=== PATIENT | male | born 1950 | race Caucasian/White ===

== ENCOUNTER 2017-11-19 12:13 | Outpatient (CLI) | payer MEDICARE, BC ==
[~2017-11-19] VITALS: Ht 185.4 cm; Wt 127.8 kg
[~2017-11-19 12:13] MED LIST changes: -BENADRYL 1%-0.11 CRE TP
[2017-11-19 15:56] VITALS: BP 112/57; PULSE 69; TEMP 98
[2017-11-22] MEDS ORDERED: BENADRYL 1%-0.11 CRE TP (12:04)
== END 2017-11-19 15:45 | disposition home or self-care (01) ==
LOC: EUO 12:13 → EDBD 12:13 → EUO 15:45
DX: E86.0 Dehydration (principal)

== ENCOUNTER → 2017-11-19 | Outpatient (CLI) | payer MEDICARE, BC ==
[~2017-11-19] MED LIST: BENADRYL 1%-0.11 CRE TP; COLACE 100100 MG/CAP PO; EXFORGE 10 MG-11 TAB PO; GLUMETZA500 MG PO; LACRI-LUBE1 OI1 OP; LIDODERM 5% PATC1 EA TP; MOTRIN 600600 MG/TAB PO; PERCOCET 325 MG1 TA3 PO; PREDNISONE20 MG PO; TENORMIN 5050 MG/TAB PO; VALTREX1 GM PO
== END ==
LOC: EDBD 10:06 → COL.RAD 10:06
DX: S22.49XA Multiple fractures of ribs, unspecified side, initial encounter for closed fracture (principal); J90 Pleural effusion, not elsewhere classified; J18.1 Lobar pneumonia, unspecified organism

== ENCOUNTER 2018-02-09 07:37 | Outpatient (CLI) | payer MEDICARE, BC ==
[~2018-02-09] VITALS: Ht 185.4 cm; Wt 129.1 kg
[~2018-02-09 07:37] MED LIST changes: +BENADRYL 1%-0.11 CRE TP; +IMODIUM A-D2 MG PO; +K-TAB20 PO; +NOVLOG SQ
[2018-02-09 08:02] VITALS: BP 182/76; BP 195/86; PULSE 93; TEMP 97.9
[2018-02-09] MEDS ORDERED: ASPIRIN 81M81 MG/TA2 PO (08:10)
[2018-02-09] MEDS ORDERED: K-DUR20 MEQ PO (08:10)
[2018-02-09] MEDS ORDERED: NOVOLOG 100U100 U/M1 SQ (08:12)
[2018-02-09 09:51] VITALS: BP 150/61; PULSE 78; TEMP 98
[2018-02-09 10:05] VITALS: BP 114/87; PULSE 76
[2018-02-09 10:20] VITALS: BP 136/66; PULSE 74
[2018-02-09 10:35] VITALS: BP 139/64; PULSE 72
[2018-02-09 10:50] LABS: GLUCOSE,PLEURAL FLUID 133 mg/dL; TOTAL PROTEIN,PLEURAL FLUID 4.4 gm/dL
[2018-02-09 10:57] LABS: PLEURAL FLUID RBC 81000 /mm3 (0-0); PLEURAL FLUID WBC 1048 /mm3
[2018-02-09 11:03] LABS: PLEURAL FLUID APPEARANCE HAZY; PLEURAL FLUID COLOR RED
== END 2018-02-09 10:50 | disposition home or self-care (01) ==
LOC: SDCO 07:37
PROVIDERS: Internal Medicine Pulmonary Disease
DX: J90 Pleural effusion, not elsewhere classified (principal); S22.42XS Multiple fractures of ribs, left side, sequela; G47.10 Hypersomnia, unspecified; E11.9 Type 2 diabetes mellitus without complications; Z79.82 Long term (current) use of aspirin; Z79.4 Long term (current) use of insulin; Z87.891 Personal history of nicotine dependence

== ENCOUNTER → 2018-04-28 | Outpatient (CLI) | payer MEDICARE, BC ==
[~2018-04-28] MED LIST changes: +ASPIRIN 81M81 MG/TA2 PO; +K-DUR20 MEQ PO; +NOVOLOG 100U100 U/M1 SQ
== END ==
LOC: COL.RAD 08:23
DX: M89.312 Hypertrophy of bone, left shoulder (principal)

== ENCOUNTER 2020-12-31 08:37 | Day surgery (SDC) | payer MEDICARE, BC ==
[2020-12-31] VITALS (10 sets, daily range): BP systolic 111–160; BP diastolic 66–93; PULSE 88–116; TEMP 98.7
[~2020-12-31] VITALS: Ht 185.4 cm; Wt 148.0 kg
[2020-12-31 10:20] LABS: HEMATOCRIT 43.4 % (42.0-52.0); HEMOGLOBIN 14.4 g/dl (13.5-18.0); MEAN CELL VOLUME 90 fl (80.0-100.0); MEAN CORPUSCULAR HEMOGLOBIN 30 pg (27.0-31.0); MEAN CORPUSCULAR HGB CONC 33 g/dl (33.0-37.0); MEAN PLATELET VOLUME 10.9 fl (7.4-10.4); PLATELET COUNT 143 K/mm3 (130-400); RED BLOOD COUNT 4.82 M/mm3 (4.20-5.60); REDCELL DISTRIBUTION WIDTH-CV 11.9 % (11.5-14.5)
[2020-12-31 10:28] LABS: INR 1.1 (0.8-3.0); PROTHROMBIN TIME 11.8 SECONDS (9.7-12.8)
[2020-12-31 10:31] LABS: CALCIUM 10.1 mg/dL (8.4-10.2); CREATININE, serum 1.13 (0.66-1.25); POTASSIUM 3.7 mmol/L (3.4-5.0)
--- NOTE | 2020-12-31 10:55 | NUR ---
SEE MERGE DOCUMENTATION FOR MEDICATION ADMINISTRATION TIMES AND INTRA/POST PROCEDURE SEDATION ASSESSMENTS. RIGHT HAND BARBEAU TEST POSITIVE.
[2020-12-31] MEDS ORDERED: NORVASC 10MG10 MG PO (11:11)
[2020-12-31] MEDS ORDERED: GLUCOTROL XL10 MG PO (11:12)
[2020-12-31] MEDS ORDERED: TOPROL XL100 MG PO (11:12)
[2020-12-31] MEDS ORDERED: MULTI-VITAMIN W1 TA2 PO (11:13)
[2020-12-31] MEDS ORDERED: CRESTOR40 MG PO (11:13)
[2020-12-31] MEDS ORDERED: DIOVAN 160MG160 MG PO (11:14)
[2020-12-31] MEDS ORDERED: DYAZIDE 25 MG-31 CAP PO (11:14)
[2020-12-31] MEDS ORDERED: VICTOZA6 MG/ML SQ (11:15)
[2020-12-31] MEDS ORDERED: LANOXIN 0.25M0.25 MG PO (14:05)
--- NOTE | 2020-12-31 14:30 | NUR ---
TR band was deflated completely at 1420, rt radial site dressed with bandaid, folded 2x2 and coban. Pt is up and ambulatory in unit with steady gait. IV dc'd with cath intact, dressing applied. Pt and I have discussed dc/rx and fu instructions, and Dr. Johnson has been back in to discuss poc with patient. Pt is waiting on a ride from his son.
--- NOTE | 2020-12-31 15:10 | NUR ---
to exit via wheelchair
== END 2020-12-31 17:58 | disposition home or self-care (01) ==
LOC: COL.CAR 08:37
PROVIDERS: Internal Medicine Cardiovascular Disease
DX: R94.31 Abnormal electrocardiogram [ECG] [EKG] (principal); I10 Essential (primary) hypertension; E78.2 Mixed hyperlipidemia; I48.0 Paroxysmal atrial fibrillation; I42.0 Dilated cardiomyopathy; I44.7 Left bundle-branch block, unspecified; E11.9 Type 2 diabetes mellitus without complications; E66.01 Morbid (severe) obesity due to excess calories; Z79.82 Long term (current) use of aspirin; Z88.8 Allergy status to other drugs, medicaments and biological substances; Z79.4 Long term (current) use of insulin
CPT/HCPCS: C1769; C1887; J1644; J2250; J3010; Q9967

== ENCOUNTER 2022-12-03 06:51 | Day surgery (SDC) | payer MEDICARE, BC ==
[~2022-12-03] VITALS: Ht 185.4 cm; Wt 147.2 kg
[2022-12-03] VITALS (12 sets, daily range): BP systolic 111–158; BP diastolic 59–87; PULSE 75–92; TEMP 98.9
[~2022-12-03 06:51] MED LIST changes: +CRESTOR40 MG PO; +DIOVAN 160MG160 MG PO; +DYAZIDE 25 MG-31 CAP PO; +GLUCOTROL XL10 MG PO; +LANOXIN 0.25M0.25 MG PO; +MULTI-VITAMIN W1 TA2 PO; +NORVASC 10MG10 MG PO; +TOPROL XL100 MG PO; +VICTOZA6 MG/ML SQ
[2022-12-03] MEDS ORDERED: DYAZIDE 25 MG-31 CAP PO (07:29)
[2022-12-03 07:57] LABS: INR 1.1 (0.8-3.0); PROTHROMBIN TIME 12.1 SECONDS (9.7-12.8)
[2022-12-03 07:59] LABS: HEMATOCRIT 38.6 % (42.0-52.0); HEMOGLOBIN 13.2 g/dl (13.5-18.0); MEAN CELL VOLUME 88 fl (80.0-100.0); MEAN CORPUSCULAR HEMOGLOBIN 30 pg (27-31); MEAN CORPUSCULAR HGB CONC 34 g/dl (33.0-37.0); MEAN PLATELET VOLUME 10.9 fl (7.4-10.4); PARTIAL THROMBOPLASTIN TIME 30.8 SECONDS (26.0-37.0); PLATELET COUNT 133 K/mm3 (130-400); RED BLOOD COUNT 4.39 M/mm3 (4.20-5.60); REDCELL DISTRIBUTION WIDTH-CV 12.5 % (11.5-14.5)
[2022-12-03 08:17] LABS: CALCIUM 9.5 mg/dL (8.4-10.2); CREATININE, serum 1.3 mg/dL (0.72-1.25); POTASSIUM 3.6 mmol/L (3.5-4.5)
--- NOTE | 2022-12-03 13:19 | NUR ---
Air has been removed from TR band in 2 ml increments with no bleeding or complications. Rt radial puncture site dressed with gauze and bandaid. Pt is steady on feet in room. He's tolerated PO without issue. IV DC'd, site wrapped with coban. Pt getting dressed. His son is coming from home to pick pt up. Pt will wait in room for his arrival, then be assisted out by wheelchair. Pt expressed understanding of DC instructions.
--- NOTE | 2022-12-03 13:40 | NUR ---
Pt's son arrived, pt assisted out in wheelchair to son's car with belongings.
== END 2022-12-03 13:40 | disposition home or self-care (01) ==
LOC: COL.CAR 06:51
PROVIDERS: Internal Medicine Cardiovascular Disease
DX: R94.39 Abnormal result of other cardiovascular function study (principal); R07.89 Other chest pain; I42.9 Cardiomyopathy, unspecified; E66.9 Obesity, unspecified
CPT/HCPCS: J1644; J2250; J3010; Q9967

== ENCOUNTER 2024-04-03 08:19 | Day surgery (SDC) | payer MEDICARE, BC ==
[~2024-04-03] VITALS: Ht 185.4 cm; Wt 146.9 kg
[~2024-04-03 08:19] MED LIST changes: +CEPHALEXIN500 M1 PO; +LASIX 20MG TABL20 MG PO; +LR 1,000 ML IV SCH; +OXYGEN NASAL.CANN; +Ondansetron 4 MG/2 ML VIAL IV PRN; +ZOFRAN 4MG T4 MG/TAB PO
[2024-04-03] MEDS ORDERED: OZEMPIC1 MG/0.71 SQ (09:07)
[2024-04-03] MEDS ORDERED: MAXZIDE-25MG TA1 TAB PO (09:29)
[2024-04-03] MEDS ORDERED: Lidocaine PF 2% (20 MG/ML) 5 ML VIAL ONE (10:02)
[2024-04-03 10:10] VITALS: BP 127/68; PULSE 80; TEMP 96.7
[2024-04-03 10:30] VITALS: BP 138/71; PULSE 73
[2024-04-03 11:55] VITALS: BP 155/92; PULSE 93; TEMP 98.4
--- NOTE | 2024-04-03 12:19 | NUR ---
1010- PT RETURNS FROM ENDO PROCEDURE VIA CART AND RN ASSIST TO GI BAY 3. PT AMBULATES FROM CART TO RECLINER WITH ASSIST. MONITORS ON AND ALARMS SET. CALL LIGHT WITHIN REACH. REPORT RECEIVED FROM GAMAL MILLER. PT ALERT AND ORIENTED. PT REQUESTS FOOD AND DRINK. PT DENIES ANY PAIN OR NAUSEA. 1030- PT TAKIG FOOD AND DRINK WELL. NO COMPLICATIONS NOTED. 1105- DISCHARGE INSTRUCTIONS GIVEN TO PT. ALL QUESTIONS ANSWERED. 1140- PT TRANSFERRED OUT OF THE [facility]OPITAL VIA WHEELCHAIR TO PRIVATE VEHICLE DRIVEN BY SISTER IN-[place].
== END 2024-04-03 11:40 | disposition home or self-care (01) ==
LOC: SDCO 08:19
DX: Z12.11 Encounter for screening for malignant neoplasm of colon (principal); K64.0 First degree hemorrhoids; K57.30 Diverticulosis of large intestine without perforation or abscess without bleeding; E66.01 Morbid (severe) obesity due to excess calories; Z86.010 Personal history of colon polyps
CPT/HCPCS: J2704; J7120